=== PATIENT | male | born 1945 | race Caucasian/White ===

== ENCOUNTER → 2021-04-12 | Day surgery (SDC) | payer MEDICARE ==
[~2021-04-12] VITALS: Ht 175.3 cm; Wt 83.9 kg
[~2021-04-12] MED LIST: MULTIPLE VITAM1 EAC1 PO; ZYRTEC10 M3 PO
[2021-04-12 09:51] LABS: HCT 37.4 % (42.0-52.0); HGB 13.2 g/dl (13.2-18.0); MCH 32.8 pg (25.0-31.0); MCHC 35.3 g/dL (32.0-36.0); MPV 10.4 fL (6.0-9.5); RBC 4.02 M/uL (4.70-6.00); WBC 3.9 K/uL (4.0-10.5)
[2021-04-12 10:06] LABS: ALBUMIN 3.4 g/dL (3.4-5.0); BILIRUBIN - TOTAL 0.4 mg/dL (0.2-1.0); BUN/CREAT RATIO (CALC) 11.9 RATIO; CREATININE 1.01 mg/dL (0.67-1.17); GLOBULIN (CALCULATION) 3.3 g/dL; POTASSIUM 4.1 mmol/L (3.5-5.1); TOTAL PROTEIN 6.7 g/dL (6.4-8.2)
== END | disposition home or self-care (01) ==
LOC: FAS 08:48
PROVIDERS: Surgery
DX: D61.818 Other pancytopenia (principal); Z79.899 Other long term (current) drug therapy
CPT/HCPCS: 36415; 80053; 88305; 88341; 88342; J1642; J2250; J2704; J7120